=== PATIENT | male | born 1995 | race African-American/Black ===

== ENCOUNTER 2018-06-08 16:57 | Emergency (ER) | payer OTHER ==
[~2018-06-08] VITALS: Ht 175.3 cm; Wt 65.3 kg
[2018-06-08 18:28] LABS: Basophils # (auto) 0.1 uL; Basophils % (auto) 1.3 % (0.0-2.0); Eosinophils # (auto) 0.2 uL; Eosinophils % (auto) 4.6 % (0.0-7.0); Hematocrit 43.1 % (41.0-53.0); Hemoglobin 15.2 g/dL (13.5-17.5); Lymphocytes # (auto) 1.7 uL; Lymphocytes % (auto) 42.4 % (10.0-50.0); Mean Corpuscular Hemoglobin 33.1 pg (28.0-32.0); Mean Corpuscular Hgb Conc. 35.2 g/dL (32.0-36.0); Mean Corpuscular Volume 94.2 fL (80.0-100.0); Monocytes # (auto) 0.5 uL; Monocytes % (auto) 13.5 % (0.0-12.0); Neutrophils # (auto) 1.5 uL; Neutrophils % (auto) 38.2 % (37.0-80.0); Nucleated Red Blood Cells % 0.4 %; Platelet Count (auto) 191 10^3/uL (140-450); Red Blood Cells 4.58 10^6/uL (4.5-5.90); Red Cell Distribution Width 12.9 % (11.8-14.3); White Blood Cell 3.9 10^3/uL (4.4-10.8)
[2018-06-08 18:30] LABS: Albumin 3.8 g/dL (3.4-5.0); Calcium 8.2 mg/dL (8.5-10.1); Potassium 3.7 mmol/L (3.5-5.1)
[2018-06-08 18:32] LABS: Total Protein 7.7 g/dL (6.4-8.2)
[2018-06-08] MEDS ORDERED: ONDANSETRON ODT 4 MG TAB PO ONE (19:45)
[2018-06-08 22:04] VITALS: BP 115/88
== END 2018-06-08 22:20 | disposition home or self-care (01) ==
LOC: ER 16:57
DX: K52.9 Noninfective gastroenteritis and colitis, unspecified (principal); F17.210 Nicotine dependence, cigarettes, uncomplicated
CPT/HCPCS: 36415; 74176; 80053; 82150; 83690; 85025; 99285; Q0162

== ENCOUNTER → 2020-03-12 | Emergency (ER) | payer OTHER ==
[~2020-03-12] VITALS: Ht 175.3 cm; Wt 70.3 kg
[~2020-03-12] MED LIST: ACETAMINOPHEN 500 MG TAB PO ONE; IBUPROFEN 800 MG TAB PO ONE
[2020-03-12 21:39] VITALS: BP 129/82
== END | disposition home or self-care (01) ==
LOC: ER 20:19
DX: S62.336A Displaced fracture of neck of fifth metacarpal bone, right hand, initial encounter for closed fracture (principal); F17.210 Nicotine dependence, cigarettes, uncomplicated; W26.8XXA Contact with other sharp object(s), not elsewhere classified, initial encounter; Y93.89 Activity, other specified; Y92.89 Other specified places as the place of occurrence of the external cause; Y99.8 Other external cause status
CPT/HCPCS: 29125; 73130